=== PATIENT | female | born 1950 | race Caucasian/White ===

== ENCOUNTER 2017-08-31 06:35 | Day surgery (SDC) | payer MEDICARE, BC ==
[2017-08-27 12:14] VITALS: BMI 28.9
[~2017-08-31 06:35] MED LIST: ALPRAZolam 0.25 MG TAB PO PRN; ALPRAZolam 0.5 MG TAB PO PRN; ASPIRIN 325 MG TAB PO STA; ATORVASTATIN 80 MG TAB PO STA; NITROGLYCERIN SL TABS 0.4 MG TAB SUBLINGUAL PRN; SODIUM CHLORIDE 0.9% 1,000 ML in EMPTY BAG 1 BAG IV ONE
[2017-08-31 07:00] VITALS: TEMP 97.7
[2017-08-31 07:12] LABS: Basophils % (A) 1 %; Eosinophils # (A) 0.1 k/uL (0-0.7); Eosinophils % (A) 2 %; HCT 39.8 % (34.0-46.0); HGB 13.4 gm/dL (11.4-16.0); Lymphocytes % (A) 35 %; MCH 30.2 pg (25.0-35.0); MCHC 33.7 g/dL (31.0-37.0); MCV 89.5 fL (80.0-100.0); Mean Platelet Volume 6.6; Monocytes # (A) 0.4 k/uL (0-1.0); Monocytes % (A) 7 %; Neutrophils # (A) 3.1 k/uL (1.3-7.7); Neutrophils % (A) 54 %; Platelet Count 407 k/uL (150-450); RBC 4.44 m/uL (3.80-5.40); WBC 5.8 k/uL (3.8-10.6)
[2017-08-31 07:19] LABS: Anion Gap 11 mmol/L; Blood Urea Nitrogen 12 mg/dL (7-17); Calcium 9.5 mg/dL (8.4-10.2); Carbon Dioxide 28 mmol/L (22-30); Chloride 103 mmol/L (98-107); Glucose 116 mg/dL (74-99); Potassium 4.1 mmol/L (3.5-5.1); Sodium 142 mmol/L (137-145)
[2017-08-31] MEDS ORDERED: MIDAZOLAM 2 MG/2 ML VIAL IVP ONE ×2 (07:55)
[2017-08-31] MEDS ORDERED: LIDOCAINE 2% INJ 20 MG/ML SQ ONE (07:58)
[2017-08-31] MEDS ORDERED: NITROGLYCERIN 1000MCG/10ML SYRINGE INTRACORON ONE (08:06)
[2017-08-31] MEDS ORDERED: hydrALAZINE HCL 20 MG/ML 1 ML VIAL IVP ONE (08:09)
[2017-08-31] MEDS ORDERED: IOHEXOL 350 MG/ML 125ML BOTTLE INJ ONE (08:17)
[2017-08-31] MEDS ORDERED: RX INFO: IV CONTRAST WAS GIVEN 1 EACH MISC MISCELLANE PRN (08:32)
[2017-08-31] MEDS ORDERED: SODIUM CHLORIDE 0.9% 1,000 ML IV SCH (08:45)
--- NOTE | 2017-08-31 08:53 | CC ---
CARDIAC CATHETERIZATION REPORT DATE OF PROCEDURE: 08/31/2017 PERFORMING PHYSICIAN: Daniel Disla MD, Physical Science Professor. PROCEDURE PERFORMED: Selective right and left coronary angiogram. INDICATION: This is a pleasant 67-year-old female patient who was experiencing intermittent episodes of chest discomfort concerning for unstable angina. Because of that, a heart catheterization was recommended. APPROACH: Right common femoral artery. COMPLICATION: None. LEVEL OF SEDATION: Moderate with sedation length of 30 minutes. PROCEDURE DESCRIPTION: After obtaining an informed consent, the patient was brought to the Cardiac Radiology Director. The right common femoral artery was cannulated using micropuncture technique, the micropuncture wire passed easily, then I placed a 6-Wallisian sheath in the right common femoral artery. After that, I did selective right and left coronary angiogram using JR4 and JL4 catheters. After that, the procedure was completed without any complication. SELECTIVE CORONARY ANGIOGRAM: 1. The right coronary artery is a large caliber vessel and it is a dominant vessel. The proximal and mid RCA have mild disease only. The distal RCA has mild disease only as well and bifurcates into PDA and PLV branches. Both are angiographically normal. 2. The left main is angiographically normal. It bifurcates into the left circumflex and left anterior descending artery. 3. The left circumflex is a large caliber vessel. It is a nondominant vessel with the proximal circ is angiographically normal. The mid circ has mild disease only and gives rise into a large OM branch which bifurcates into multiple subbranches, all subbranches are angiographically normal and the circ continued after that as a small-caliber vessel in the AV groove. 4. The LAD: The proximal LAD by the bifurcation of a large diagonal branch has disease that appeared to be in the range of 50% only. It is a long tubular lesion. The mid LAD and distal LAD are angiographically normal. CONCLUSION: 1. Intermediate disease involving the proximal LAD. 2. Severe vasospasm involving the ostial right coronary artery, responds nicely to IC nitroglycerin. POSTPROCEDURE MANAGEMENT: Maximize medical treatment and follow up with the patient. MMODL / IJN: [id number] /
--- NOTE | 2017-08-31 08:59 | LTR ---
DATE OF SERVICE: 08/31/2017 RE: Florence Costa Dear Deborah; Ms. Costa underwent a heart catheterization today and that revealed intermediate disease involving the proximal left anterior descending artery, is not severe enough to require stenting. I want to thank you for allowing me to participate in her care and I will continue following up with the patient and adjusting her medications. Sincerely, MD TRESA Carrera / BREN: [id number] /
[2017-08-31 09:15] VITALS: RESP 18
[2017-08-31 10:57] VITALS: BP 119/59; PULSE 85
== END 2017-08-31 13:35 | disposition home or self-care (01) ==
LOC: CATHCVL 06:35
PROVIDERS: ATTEND Internal Medicine Interventional Cardiology
DX: I25.111 Atherosclerotic heart disease of native coronary artery with angina pectoris with documented spasm (principal); E78.00 Pure hypercholesterolemia, unspecified; I10 Essential (primary) hypertension; Z82.49 Family history of ischemic heart disease and other diseases of the circulatory system; F17.210 Nicotine dependence, cigarettes, uncomplicated; Z79.82 Long term (current) use of aspirin; Z79.899 Other long term (current) drug therapy
CPT/HCPCS: 93454; 80048; 85025; C1894 ×2; C1769 ×2; C1760; J2001; J2250; J0360; Q9967

== ENCOUNTER → 2018-03-27 | Outpatient (CLI) | payer MEDICARE, BC ==
--- NOTE | 2018-04-02 12:22 | PE ---
Nuclear medicine PET/CT HISTORY: Lung carcinoma, subsequent Patient received 15.4 mCi F-18 FDG intravenously in delayed scanning was performed from the skull bas e to the mid thighs. Localization and attenuation correction CT scan was performed. Comparison PET/CT dated December 23, 2017 FINDINGS: Neck and chest: In the right lower lobe there is a soft tissue mass present measuring approximately 9 x12 mm in greatest dimension, previously measuring 9 x 7 mm with SUV reported 4.5. There is some asso ciated hypermetabolic uptake in the nodule currently, SUV 2.6. Additional small foci of groundglass o pacity and soft tissue nodular appearance are present within the right and left upper lungs which do not show associated hypermetabolic uptake, similar to prior exam. Left lower lobe lesion measures 14 by 15 mm, SUV only 1.2, previously measured at approximately 7 mm. In the apical segment of the left lower lobe soft tissue nodule measures 8.5 mm and previously measured 7 mm, no associated hypermetabo lic uptake. No mediastinal, axillary, or hilar adenopathy. Coronary artery calcifications are present . There are some calcified right hilar nodes present. Abdomen pelvis: There is no evident adrenal mass. No suspicious hypermetabolic uptake. No evident maggy er mass. Osseous structures: Postop change noted to the right hip. No suspicious hypermetabolic uptake. IMPRESSION: Bilateral lung nodules as described have grown slightly in the interval.
== END | disposition home or self-care (01) ==
LOC: RADPETMAIN 14:13
PROVIDERS: ATTEND Thoracic Surgery (Cardiothoracic Vascular Surgery)
DX: R91.8 Other nonspecific abnormal finding of lung field (principal); C34.31 Malignant neoplasm of lower lobe, right bronchus or lung
CPT/HCPCS: 78815; A9552